=== PATIENT | male | born 1950 | race African-American/Black ===

== ENCOUNTER 2024-03-14 19:17 | Emergency (ER) | payer OTHER ==
[2024-03-14 19:48] VITALS: BP 149/85; PULSE 87; RESP 18; TEMP 99.4; BMI 36.9
[2024-03-14] MEDS ORDERED: ACETAMINOPHEN INJECTION 100 ML IVPB ONE (20:34)
[2024-03-14 20:59] LABS: BASO % 0.6 % (0-2.0); EOS % 3.8 % (0-4.5); HEMOGLOBIN 14.4 GM/dL (11.7-16.9); LYMPH % 22.1 % (8-40); MCH 30.2 pg (25.7-33.7); MCHC 33.5 g/dl (32.0-35.9); MEAN CELL VOLUME 90.2 fl (80-96); MEAN PLT VOLUME 8.2 fl (7.5-11.1); MONO % 8.5 % (3.8-10.2); PLATELET COUNT 159 10^3/uL (134-434); RBC 4.77 M/mm3 (4.00-5.60); RDW 13.9 % (11.9-15.9); WHITE BLOOD COUNT 8.6 K/mm3 (4.0-10.0)
[2024-03-14] MEDS: ALBUTEROL SO4 2.5/IPRATROPIUM 0.5 INH SOL 3 ML VIAL.NEB. NEB SCH (21:00)
[2024-03-14] MEDS: ACETAMINOPHEN 1000 MG/100 ML BAG IVPB ONE (21:03)
[2024-03-14 21:05] LABS: INR 0.95 (0.83-1.09); PROTHROMBIN TIME (PATIENT) 10.9 SEC (9.7-13.0)
[2024-03-14 21:08] LABS: ACTIVATED PTT 30.9 SECONDS (25.2-36.5)
[2024-03-14 21:18] LABS: POTASSIUM 4.3 mmol/L (3.5-5.1)
[2024-03-14 21:20] LABS: CALCIUM 9.2 mg/dL (8.5-10.1)
[2024-03-14 21:21] LABS: ALBUMIN 3.8 g/dl (3.4-5.0); BLOOD UREA NITROGEN 11.2 mg/dL (7-18); MAGNESIUM 2.1 mg/dL (1.8-2.4)
[2024-03-14 21:24] LABS: PHOSPHOROUS 2.6 mg/dL (2.5-4.9)
[2024-03-14 21:25] LABS: BILIRUBIN,TOTAL 0.6 mg/dL (0.2-1)
[2024-03-14 21:29] LABS: N-TERMINAL BNP 135.4 pg/ml (5-125)
[2024-03-14] MEDS ORDERED: ALBUTEROL SO4 2.5/IPRATROPIUM 0.5 INH SOL 3 ML VIAL.NEB. NEB ONE (21:42)
[2024-03-14] MEDS ORDERED: CEFTRIAXONE 1 GM/50 ML BAG ONE (21:42)
[2024-03-14] MEDS ORDERED: AZITHROMYCIN IVPB 500 MG/250 ML BAG IVPB ONE (21:43)
[2024-03-14] MEDS: AZITHROMYCIN IVPB 500 MG in DEXTROSE 5%-WATER - 250 ML IVPB ONE (22:15)
[2024-03-14] MEDS ORDERED: KETOROLAC TROMETHAMINE 15 MG/ML VIAL ONE (23:08)
[2024-03-14] MEDS: KETOROLAC TROMETHAMINE 30 MG/1 ML VIAL IVPUSH ONE (23:19)
== END 2024-03-15 00:15 | disposition home or self-care (01) ==
LOC: JER 19:17
PROC: 3E03329 Introduction of Other Anti-infective into Peripheral Vein, Percutaneous Approach (ICD-10-PCS; principal; 2024-03-14)
PROC: 3E033NZ Introduction of Analgesics, Hypnotics, Sedatives into Peripheral Vein, Percutaneous Approach (ICD-10-PCS; 2024-03-14)
PROC: 3E03329 Introduction of Other Anti-infective into Peripheral Vein, Percutaneous Approach (ICD-10-PCS; 2024-03-14)
DX: R05.9 Cough, unspecified (principal); R07.9 Chest pain, unspecified; J15.9 Unspecified bacterial pneumonia; Z20.822 Contact with and (suspected) exposure to COVID-19
CPT/HCPCS: 0241U-QW; 36415; 71045-TC-FY; 80053; 83735; 83880; 84100; 84484; 85025; 85610; 85730; 93005; 93010; 99285-25; J0131